=== PATIENT | male | born 1950 | race Caucasian/White ===

== ENCOUNTER 2019-12-11 01:28 | Emergency (ER) | payer OTHER ==
[~2019-12-11] VITALS: Ht 177.8 cm; Wt 65.0 kg
[2019-12-11 01:36] VITALS: BP 61/44
--- NOTE | 2019-12-11 01:43 | PHYS DOC ---
Past Medical History Past Medical History: Dementia Past Medical History Schizoaffective disorder, COVID-19 Social History Narrative: group home resident General Adult EDM: Chief Complaint: DYSPNEA/RESPIRATOY DISTRESS HPI: HPI: Patient is a 69 year old male who arrives in extremis from [facility] jail. History physical and review of systems are limited due to respiratory distress and altered mental status. Per reports patient had COVID- 19 was diagnosed on November 02 and had respiratory distress tonight. Patient hypotensive and hypoxic on CPAP. Patient has an active DO NOT RESUSCITATE orde r. Review of Systems: Review of Systems: Unobtainable due to altered mental status Heart Score: Risk Factors: Risk Factors: DM, Current or recent (<one month) smoker, HTN, HLP, family hi story of CAD, obesity. Risk Scores: Score 0 - 3: 2.5% MACE over next 6 weeks - Discharge Home Score 4 - 6: 20.3% MACE over next 6 weeks - Admit for Clinical Observation Score 7 - 10: 72.7% MACE over next 6 weeks - Early Invasive Strategies Physical Exam: PE: Constitutional: Cachectic severe respiratory distress HENT: Normocephalic, atraumatic, dry oropharynx Eyes: Sunken eyes Neck: Accessory muscle use Cardiovascular: Irregular, peripheral pulses thready Lungs & Thorax: Severe respiratory distress with diminished breath sounds bilaterally Abdomen: Soft and nontender Skin: Pale Back: Unable to assess Extremities: Cachectic frail Neurologic: Drowsy oriented x0 no lateralizing deficits Psychologic: Unable to assess EKG: EKG: EKG interpreted by me normal sinus rhythm rate is 99 normal axis normal i ntervals nonspecific ST changes [] Radiology/Procedures: Radiology/Procedures: [] Course & Med Decision Making: Course & Med Decision Making Pertinent Labs and Imaging studies reviewed. (See chart for details) [] 69-year-old male arrives in extremis with hypotension and respiratory failure pulse ox is extremely low even on submental oxygen patient was quickly moved over to BiPAP and sepsis bundle was initiated. Due to patient's DO NOT RESUS CITATE order the treatment options were limited patient began to bradycardia down and respiratory drive eventually ceased at 2:35 AM patient patient lost a pulse and was not breathing. Patient was in PEA on the monitor patient was pronounced at 2:35 AM Hailee Disclaimer: Hailee Disclaimer: This electronic medical record was generated, in whole or in part, using a voice recognition dictation system. Departure Departure Impression: Primary Impression: Respiratory failure Additional Impression: COVID-19 Disposition: 20 Condition: Justicifation of Admission Dx: Justifications for Admission: Justification of Admission Dx: N/A СВЕТЛАНА VARGAS MD Dec 11, 2019 01:43
[2019-12-11 01:52] LABS: BASO # 0.1 x10^3/uL (0.0-0.2); BASO % 0 % (0-3); EOS # 0.1 x10^3/uL (0.0-0.7); EOS % 0 % (0-3); HEMATOCRIT 42.1 % (39.0-53.0); HEMOGLOBIN 13.7 g/dL (13.0-17.5); LYMPH # 1.4 x10^3/uL (1.0-4.8); LYMPH % 8 % (24-48); MEAN CORPUSCULAR HEMOGLOBIN 29 pg (25-35); MEAN CORPUSCULAR HGB CONC 32 g/dL (31-37); MEAN CORPUSCULAR VOLUME 90 fL (79-100); MONO # 0.4 x10^3/uL (0.0-1.1); MONO % 2 % (0-9); NEUT % 89 % (31-73); PLATELET COUNT 360 x10^3/uL (140-400); RED BLOOD COUNT 4.67 x10^6/uL (4.30-5.70); RED CELL DISTRIBUTION WIDTH 15.1 % (11.5-14.5); WHITE BLOOD COUNT 17.9 x10^3/uL (4.0-11.0)
[2019-12-11 02:02] LABS: PROTHROMBIN TIME PATIENT 13.3 SEC (11.7-14.0)
[2019-12-11 02:04] LABS: CALCIUM 9.2 mg/dL (8.5-10.1); GFR 33.3; POTASSIUM 3.6 mmol/L (3.5-5.1)
[2019-12-11 02:10] LABS: ALBUMIN 2.9 g/dL (3.4-5.0); ALBUMIN/GLOBULIN RATIO 1.1 (1.0-1.7); TOTAL BILIRUBIN 0.3 mg/dL (0.2-1.0); TOTAL PROTEIN 5.6 g/dL (6.4-8.2)
[2019-12-11 02:12] LABS: % BANDS 14 % (0-9); % LYMPHS 9 % (24-48); % METAS 1 % (0-0); % MONOS 1 % (0-10); % SEGS 75 % (35-66)
[2019-12-11 02:13] LABS: PLT ESTIMATE ADEQUATE (ADEQUATE)
[2019-12-11] MEDS ORDERED: IV NORMAL SALINE 1000ML BAG 1,000 ML IV SCH (02:30)
[2019-12-11] MEDS ORDERED: PIPERACILLIN/TAZOBACTAM 3.375 GM in IV NORMAL SALINE 50ML 50 ML IV ONE (03:00)
[2019-12-11] MEDS ORDERED: ATROPINE 0.5 MG/5 ML DISP.SYRINGE. IV ONE (03:00)
--- NOTE | 2019-12-11 04:45 | RAD ---
PORTABLE CHEST 1V Clinical Indication: Reason: SOA / Spl. Instructions: / History: Comparison: None. Findings: The cardiomediastinal silhouette is normal. There are diffuse interstitial opacities in the lungs. There are airspace opacities in the perihilar left lung. Probable faint airspace opacities in the perihilar right lung. There is no pneumothorax. No pleural effusion is appreciated. No acute bone abnormality. IMPRESSION: There are diffuse bilateral interstitial opacities and bilateral perihilar airspace opacities. Considerations include multifocal pneumonia, pulmonary edema, or ARDS. Electronically signed by: Jose Umaña MD (12/11/2019 4:42 AM) [facility]
--- NOTE | 2019-12-13 09:07 | EKG ---
[facility] [address] [place] [id number] Test Date: 2019-12-11 Test Time: 01:36:12 Pat Name: TAMI DEL REAL Department: Room: Gender: M Supervisor [employer]: : 1950 Requested By: СВЕТЛАНА VARGAS Order Number: [id number] Reading MD: Joe Fernandez MD Measurements Intervals [place] Rate: 99 P: 53 MS: 110 QRS: 6 QRSD: 94 T: 77 QT: 364 QTc: 473 Interpretive Statements SINUS RHYTHM Electronically Signed On 12-13-2019 13:54:54 CDT by Joe Fernandez MD
== END 2019-12-11 06:20 | disposition expired ==
LOC: ER 01:28
DX: U07.1 COVID-19 (principal); J96.91 Respiratory failure, unspecified with hypoxia; R41.82 Altered mental status, unspecified; F25.9 Schizoaffective disorder, unspecified; F03.90 Unspecified dementia, unspecified severity, without behavioral disturbance, psychotic disturbance, mood disturbance, and anxiety
CPT/HCPCS: 36415; 71045; 80053; 82550; 83605; 83690; 83880; 84145; 84484; 85007; 85025; 85610; 85730; 87040; 93005; 94660; 99285